=== PATIENT | male | born 1995 | race Native Hawaiian/Other Pacific Islander ===

== ENCOUNTER 2018-07-10 11:15 | Emergency (ER) | payer OTHER ==
[2018-07-10 15:35] LABS: URINE BACTERIA RARE (<OCC); URINE BILIRUBIN NEGATIVE (NEGATIVE); URINE BLOOD MODERATE (NEGATIVE); URINE CLARITY SLIGHTY-CLOUDY (Clear); URINE COLOR YELLOW (YELLOW); URINE GLUCOSE (UA) NEG (Normal); URINE LEUKOCYTE ESTERASE NEG Leu/uL (Negative); URINE PROTEIN NEGATIVE (NEGATIVE); URINE UROBILINOGEN 0.2-1.0 mg/dL (0.2-1.0)
[2018-07-10 15:37] LABS: BASO # 0.1 K/uL (0.0-0.2); BASO % 0.3 % (0.0-2.0); EOS # 0.2 K/uL (0.0-0.7); EOS % 1.3 % (0.0-4.0); HEMOGLOBIN 16.2 g/dL (12.0-18.0); LYMPH # 3.4 K/uL (1.0-4.3); LYMPH % 22.9 % (20.0-40.0); MEAN CELL VOLUME 87.3 fl (80.0-94.0); MEAN CORPUSCULAR HEMOGLOBIN 29.4 pg (27.0-31.0); MEAN CORPUSCULAR HGB CONC 33.7 g/dL (33.0-37.0); MEAN PLATELET VOLUME 8.9 fl (7.2-11.7); MONO # 0.9 K/uL (0.0-0.8); MONO % 6.3 % (0.0-10.0); NEUT # 10.2 K/uL (1.8-7.0); NEUT % 69.2 % (50.0-75.0); RBC 5.52 Mil/uL (4.40-5.90); RED CELL DISTRIBUTION WIDTH 13.2 % (11.5-14.5); WHITE BLOOD COUNT 14.7 K/uL (4.8-10.8)
[2018-07-10 15:52] LABS: BLOOD UREA NITROGEN 15 mg/dl (9-20); GFR NON-AFRICAN AMERICAN > 60
[2018-07-10 15:53] LABS: ALB/GLOB RATIO 1.2 (1.0-2.1); ALBUMIN 4.9 g/dL (3.5-5.0); ALT/SGPT 84 U/L (21-72); AST/SGOT 72 U/L (17-59); CALCIUM 9.8 mg/dL (8.4-10.2)
--- NOTE | 2018-07-11 09:26 | CT ---
Date of service: 07/10/2018 PROCEDURE: CT Abdomen and Pelvis with Oral contrast. HISTORY: Right flank pain COMPARISON: None. TECHNIQUE: CT scan of the abdomen and pelvis was performed without administration of intravenous contrast. Oral contrast was not administered. Radiation dose: Total exam DLP = 837.46 mGy-cm. This CT exam was performed using one or more of the following dose reduction techniques: Automated exposure control, adjustment of the mA and/or kV according to patient size, and/or use of iterative reconstruction technique. FINDINGS: LOWER THORAX: The visualized lungs are clear. LIVER: Normal in size. No gross lesion or ductal dilatation. GALLBLADDER AND BILE DUCTS: No calcified gallstones. PANCREAS: Normal in size. No mass. No ductal dilatation. SPLEEN: No splenomegaly. ADRENALS: No discrete nodule. KIDNEYS AND URETERS: The kidneys are normal in size. There are punctate nonobstructing stones in the right kidney. There is mild right hydronephrosis hydronephrosis, mild edema and enlargement of the right kidney and perinephric fat stranding with diffuse dilatation of the right ureteral. There is a 3 mm stone in the right distal ureteral proximal to the UV junction. The left kidney is normal in size. There are small nonobstructing stones in the lower pole, the largest measures 3 mm. BLADDER: The urinary bladder is partially distended. No intraluminal stone. No wall thickening. REPRODUCTIVE: The prostate gland is normal in size.. APPENDIX: Normal. BOWEL: The small bowel loops are normal in caliber. The colon is decompressed. No bowel dilatation or obstruction PERITONEUM: No fluid collection. No free air. LYMPH NODES: Subcentimeter lymph nodes in the right lower quadrant are likely reactive. VASCULATURE: Soon no aortic aneurysm. BONES: No fracture or destructive lesion. OTHER FINDINGS: None. IMPRESSION: 3 mm stone in the right distal ureter proximal to the UV junction with mild right hydroureteronephrosis, edema and enlargement of the kidney and minimal perinephric inflammatory changes. Punctate nonobstructing stones in both kidneys, the largest in the left lower pole measures 3 mm.
== END 2018-07-10 14:40 | disposition home or self-care (01) ==
LOC: H.ER 11:15
DX: N20.0 Calculus of kidney (principal)